=== PATIENT | male | born 1940 | race Caucasian/White ===

== ENCOUNTER 2016-09-15 17:52 | Inpatient (IN) | payer OTHER ==
[~2016-09-15] VITALS: Ht 172.7 cm; Wt 74.8 kg
[2016-09-15 18:04] VITALS: BP 164/79
[2016-09-15] MEDS ORDERED: OMEGA-31000 MG PO (18:09)
[2016-09-15] MEDS ORDERED: TAMSULOSIN HCL0.4 MG PO (18:09)
[2016-09-15] MEDS ORDERED: LOSARTAN POTASS25 MG PO (18:09)
[2016-09-15] MEDS ORDERED: CLOPIDOGREL75 MG PO (18:09)
[2016-09-15] MEDS ORDERED: ASPIRIN81 M1 PO (18:09)
[2016-09-15] MEDS ORDERED: CARVEDILOL3.125 MG PO (18:09)
[2016-09-15] MEDS ORDERED: LABETALOL 100 MG/20 ML VIAL IVP ONE (18:10)
[2016-09-15] MEDS ORDERED: ASPIRIN 81 MG TAB.CHEW PO ONE (18:10)
[2016-09-15] MEDS ORDERED: NITROGLYCERIN 0.4 MG TAB SL ONE (18:10)
--- NOTE | 2016-09-15 18:11 | NUR ---
Patient ambulated to bed 01
--- NOTE | 2016-09-15 18:14 | NUR ---
PATIENT PRESENTS TO ED WITH sob and chest pain with persistant coughing . PT STATES . DENIES N/V/D; SKIN IS PINK/WARM/DRY; AAOX4 WITH EVEN AND STEADY GAIT; LUNGS wheezing rales; HR tachy; TIME; PATIENT STATES PAIN OF 7/10 AT THIS TIME; VSS; PATIENT POSITIONED FOR COMFORT; HOB ELEVATED; BEDRAILS UP X2; BED DOWN. ER MD MADE AWARE OF PT STATUS. placed on 3L 02 NC-sat up [facility]--placed on monitor--x-ray/ RT called to bedside. lab with me collecting blood. pt reports having a stent in place and hypertension also pre diabetes
[2016-09-15] MEDS ORDERED: IPRATROPIUM 0.02% 0.5 MG/2.5 ML NEBU INH ONE (18:15)
[2016-09-15] MEDS ORDERED: ALBUTEROL 0.083% 2.5 MG/3 ML NEBU INH ONE (18:15)
--- NOTE | 2016-09-15 18:17 | NUR ---
called to bedside, pt's HR 223 currently on breathing treatment
[2016-09-15] MEDS ORDERED: NACL 0.9% 1,000 ML IV ONE (18:20)
--- NOTE | 2016-09-15 18:22 | NUR ---
RT at bedside to give patient a breathing treatment.
--- NOTE | 2016-09-15 18:23 | NUR ---
XRAY at bedside.
--- NOTE | 2016-09-15 18:45 | NUR ---
bp 99/71 labetalol held repeat 125/60 ---- notified
[2016-09-15] MEDS ORDERED: PIPERACILLIN/TAZOBACTAM 3.375 GM in DEXTROSE 5% 50 ML IV ONE (19:15)
--- NOTE | 2016-09-15 19:19 | NUR ---
report recieved from sivan joseph
[2016-09-15] MEDS ORDERED: PIPERACILLIN/TAZOBACTAM 3.375 GM VIAL IV ONE (19:28)
[2016-09-15] MEDS ORDERED: MORPHINE SULFATE 2 MG/ML SYR IVP PRN (20:00)
[2016-09-15] MEDS ORDERED: DOCUSATE SODIUM 100 MG GELCAP PO PRN (20:00)
[2016-09-15] MEDS ORDERED: ONDANSETRON 4 MG/2 ML VIAL IVP PRN (20:00)
[2016-09-15] MEDS ORDERED: NITROGLYCERIN 0.4 MG TAB SL PRN (20:15)
[2016-09-15] MEDS: LOSARTAN 25 MG TAB PO SCH ×2 (20:15→21:48)
[2016-09-15] MEDS: ASPIRIN 81 MG TAB.CHEW PO SCH (20:15)
[2016-09-15] MEDS: NACL 0.9% 500 ML IV SCH (20:20)
[2016-09-15] MEDS ORDERED: ZOLPIDEM 5 MG TAB PO PRN (20:25)
[2016-09-15 20:30] VITALS: BP 105/51
--- NOTE | 2016-09-15 20:30 | NUR ---
RECEIVED PT FROM ER VIA [facility] ON 08 15 LTS VIA BANDAR SIMS ON RT AC PATENT, ON TELEMETRY ST, BRUISES ON BILATERAL UPPER EXTREMITIES PT IS ORIENTED TO THE FLOOR CALL LIGHT WITHIN REACH FAMILY AT BED SIDE INITIAL ASSESSMENT DONE
--- NOTE | 2016-09-15 20:30 | NUR ---
Patient will be admitted to care of dr daniel. Admited to tele. Will go to [id number]. Belongings list completed. Report to opal carrillo .
--- NOTE | 2016-09-15 21:45 | NUR ---
SPUTUM, URINE SENT TO LAB , PT ON TELEMETRY ST NOT SOB NOTED
[2016-09-15] MEDS: CLOPIDOGREL 75 MG TAB PO SCH (21:49)
[2016-09-15] MEDS: TAMSULOSIN 0.4 MG CAP PO SCH (21:49)
[2016-09-15] MEDS: CARVEDILOL 3.125 MG TAB PO SCH (21:50)
[2016-09-15] MEDS: SACCHAROMYCES 250 MG CAP PO SCH (21:52)
[2016-09-16] MEDS ORDERED: PIPERACILLIN/TAZOBACTAM 3.375 GM VIAL IV ONE ×2 (00:28→05:05)
[2016-09-16] MEDS: PIPER/TAZO 3.375GM/D5W PREMIX 50 ML IV SCH ×5 (00:28→23:59)
[2016-09-16 00:40] VITALS: BP 90/50
--- NOTE | 2016-09-16 00:45 | NUR ---
PT HAS TEMP 101 TYLENOL GIVEN ORDER
[2016-09-16] MEDS: ACETAMINOPHEN 325 MG TAB PO PRN ×2 (00:53→17:28)
--- NOTE | 2016-09-16 01:30 | NUR ---
RESP KTHERAPY IS HERE AND ASSIST THE PT ON OXYMIZER 5 LTS TO GET 96% 02 SAT
[2016-09-16 04:00] VITALS: BP 94/52
--- NOTE | 2016-09-16 04:00 | NUR ---
SPONGE BATH GIVEN , LINEN CHANGED ON OXYMIZER 5 LTS , ON TELEMETRY SR, DENIES ANY PAIN OR DISCOMFORT
[2016-09-16] MEDS: NACL 0.9% 500 ML IV SCH ×2 (04:35→05:26)
--- NOTE | 2016-09-16 05:41 | NUR ---
PT SLEEPING WELL NOT DISTRESS NOTED ON TELE SR VOIDING WELL
--- NOTE | 2016-09-16 06:20 | NUR ---
PT RESTING ON BED VOIDING WELL, ON TELEMETRY SR IV ON RT AC INFUSING WELL STILL PRODUCTIVE COUGH CREAMY
--- NOTE | 2016-09-16 07:15 | NUR ---
RECEIVED REPORT FROM CARIDAD HENRIQUEZ. PT IS AAOX4, PT ON 3L OXIMIZER O2 SAT AT 94% WITH NO S/S OF DISTRESS NOTED. IV TO RIGHT AC #20, PATENT AND INTACT. NO N/V OR PAIN INDICATED. SKIN INTACT. ALL SAFETY PRECAUTIONS IN PLACE, SIDE RAILSX2, BED IN LOW POSITION, AND CALL LIGHT WITHIN REACH. WILL CONTINUE TO MONITOR.
[2016-09-16] MEDS: NACL 0.9% 1,000 ML IV SCH ×3 (07:21→20:36)
[2016-09-16 07:58] VITALS: BP 97/46
--- NOTE | 2016-09-16 08:22 | NUR ---
PATIENT HAS BEEN SCREENED AND CATEGORIZED MODERATE NUTRITION RISK. PATIENT WILL BE SEEN WITHIN 3-5 DAYS OF ADMISSION. 09/18/16-09/20/[address]
[2016-09-16] MEDS: ASPIRIN 81 MG TAB.CHEW PO SCH (08:54)
[2016-09-16] MEDS: LOSARTAN 25 MG TAB PO SCH (08:55)
[2016-09-16] MEDS: TAMSULOSIN 0.4 MG CAP PO SCH (08:55)
[2016-09-16] MEDS: CARVEDILOL 3.125 MG TAB PO SCH ×2 (08:55→20:36)
[2016-09-16] MEDS: CLOPIDOGREL 75 MG TAB PO SCH (08:57)
[2016-09-16] MEDS: SACCHAROMYCES 250 MG CAP PO SCH ×2 (08:57→20:36)
--- NOTE | 2016-09-16 08:58 | NUR ---
PT STATED HE ONLY TAKES ASPIRIN TUESDAYS AND FRIDAY. HELD ASPIRIN PER PT REFUSAL. HELD BP MEDICATIONS AND FLOMAX DUE TO PT'S LOW BLOOD PRESSURE. PT TOLERATED MEDS WELL. WILL CONTINUE TO MONITOR. FAMILY PRESENT AT BEDSIDE.
[2016-09-16] MEDS ORDERED: ATORVASTATIN 20 MG TAB PO SCH ×2 (09:00→11:10)
--- NOTE | 2016-09-16 09:30 | NUR ---
DR KRAMER TO SEE PT. WILL FOLLOW UP ON ORDERS.
--- NOTE | 2016-09-16 10:00 | NUR ---
FAMILY PRESENT AT BEDSIDE. WILL CONTINUE TO MONITOR.
[2016-09-16] MEDS ORDERED: ALBUTEROL SULFATE/IPRATROPIU 3 ML SOL IH PRN (11:10)
--- NOTE | 2016-09-16 11:30 | NUR ---
ECHOCARDIOGRAM BEING PERFORMED ON PT.
[2016-09-16] MEDS: CALCIUM CARBONATE 500 MG TAB PO SCH ×2 (11:36→17:10)
--- NOTE | 2016-09-16 11:41 | NUR ---
PT TOLERATED MEDS WELL. WILL CONTINUE TO MONITOR.
[2016-09-16 12:00] VITALS: BP 97/59
--- NOTE | 2016-09-16 12:47 | NUR ---
PT EATING DINNER WITH FAMILY PRESENT AT BEDSIDE.
--- NOTE | 2016-09-16 13:54 | NUR ---
CM NOTE PER SLASHER SAWYER GOYO EXT [phone], REVIEWS SHOULD GO TO [facility]. INITIAL REVIEW SENT TO [facility] FAX# [phone] PH# [phone] DONITA EXT [phone]
--- NOTE | 2016-09-16 14:07 | NUR ---
PT SLEEPING WITH NO DISTRESS NOTED.
--- NOTE | 2016-09-16 15:07 | NUR ---
DR TERAN IN TO SEE PT. WILL FOLLOW UP ON ORDERS.
[2016-09-16 16:00] VITALS: BP 104/55
--- NOTE | 2016-09-16 16:06 | NUR ---
PT C/O IV TO DOMINANT ARM. NEW IV STARTED TO LEFT WRIST #22, PATENT AND INTACT. WILL CONTINUE TO MONITOR.
--- NOTE | 2016-09-16 16:30 | NUR ---
DR BONILLA TO SEE PT. WILL FOLLOW UP ON ORDERS.
--- NOTE | 2016-09-16 17:14 | NUR ---
PT TOLERATED MEDS WELL. PT'S DAUGHTER AT BEDSIDE. WILL CONTINUE TO MONITOR.
--- NOTE | 2016-09-16 17:29 | NUR ---
PT HAVING LOW GRADE FEVER 99.9. ADMINISTERED TYLENOL, PER PT'S DAUGHTER'S REQUEST AMINA. WILL CONTINUE TO MONITOR.
--- NOTE | 2016-09-16 19:15 | NUR ---
ENDORSED CARE TO CARIDAD HERBERT. PT IN STABLE CONDITION.
--- NOTE | 2016-09-16 19:28 | NUR ---
RECEIVED REPORT FROM Dora MONZON RN AT BEDSIDE. INITIAL ASSESSMENT AND BODY CHECK DONE. PATIENT AAO X 4, ABLE TO FOLLOW COMMAND AND MAKE NEEDS KNOWN AND AMBULATORY. PATIENT CURRENTLY LYING DOWN ON THE BED AND WATCHING TV. NO S/S OF DISTRESS OR SOB NOTED. DENIED OF ANY PAIN/DISCOMFORT AT THIS TIME. SKIN WARM/ DRY TO TOUCH WITH NORMAL COLOR AND INTACT. NOTED SOME BRUISES TO BUE. DISCUSSED PLAN OF CARE, PAIN MANAGEMENT AND MEDICATION REGIMEN WITH PATIENT AND PATIENT VERBALIZED UNDERSTANDING. PLACED PATIENT ON SAFETY/FALL PRECAUTIONS AND WILL CONTINUE TO MONITOR. CALL LIGHT LEFT WITHIN REACH.
[2016-09-16 19:55] VITALS: BP 109/59
--- NOTE | 2016-09-16 20:34 | NUR ---
NO DISTRESS/SOB/WHEEZING NOTED AT THIS TIME. NO INDICATION FOR HHN PRN TX.
--- NOTE | 2016-09-16 21:39 | NUR ---
ADMINISTERED DUE MEDICATIONS MD'S ORDERED WITH EDUCATION GIVEN. PATIENT COMPLYING WITH MEDICATIONS AND TOLERATED WELL. ALL NEEDS ARE ATTENDED. KEPT PATIENT IN COMFORTABLE POSITION/WARM AND WILL CONTINUE TO MONITOR.
[2016-09-17] VITALS: BP 117/74
--- NOTE | 2016-09-17 01:16 | NUR ---
PATIENT RESTED WELL AND REMAINED IN STABLE CONDITION. NO APPARENT DISTRESS NOTED. WILL CONTINUE TO MONITOR.
[2016-09-17 04:00] VITALS: BP 121/71
--- NOTE | 2016-09-17 04:10 | NUR ---
PATIENT IS CLINICALLY STABLE WITH UNCHANGED V/S. AM CARE GIVEN AND WILL CONTINUE TO MONITOR.
[2016-09-17] MEDS: PIPER/TAZO 3.375GM/D5W PREMIX 50 ML IV SCH ×3 (05:42→17:19)
--- NOTE | 2016-09-17 07:25 | NUR ---
ENDORSED PLAN OF CARE TO Dora MONZON RN. PATIENT REMAINED IN STABLE CONDITION WITHOUT S/S OF DISTRESS NOTED.
--- NOTE | 2016-09-17 07:26 | NUR ---
RECEIVED REPORT FROM CARIDAD HERBERT. PT IS AAOX4, PT ON 3L OXIMIZER O2 SAT AT 92%. NO S/S OF DISTRESS NOTED. IV TO LEFT AC #20 AND RIGHT WRIST #22, PATENT AND INTACT. NO N/V OR PAIN INDICATED. SKIN INTACT. ALL SAFETY PRECAUTIONS IN PLACE, SIDE RAILSX2, BED IN LOW POSITION, AND CALL LIGHT WITHIN REACH. WILL CONTINUE TO MONITOR.
[2016-09-17 08:00] VITALS: BP 113/69
[2016-09-17] MEDS: CALCIUM CARBONATE 500 MG TAB PO SCH ×3 (08:29→17:18)
[2016-09-17] MEDS: CARVEDILOL 3.125 MG TAB PO SCH ×2 (08:30→20:00)
[2016-09-17] MEDS: ASPIRIN 81 MG TAB.CHEW PO SCH (08:30)
[2016-09-17] MEDS: LOSARTAN 25 MG TAB PO SCH (08:30)
[2016-09-17] MEDS: SACCHAROMYCES 250 MG CAP PO SCH ×2 (08:31→20:01)
[2016-09-17] MEDS: ATORVASTATIN 20 MG TAB PO SCH (08:31)
[2016-09-17] MEDS: TAMSULOSIN 0.4 MG CAP PO SCH (08:31)
[2016-09-17] MEDS: CLOPIDOGREL 75 MG TAB PO SCH (08:32)
--- NOTE | 2016-09-17 08:35 | NUR ---
DR MARTINI IN TO SEE PT. WILL FOLLOW UP ON ORDERS
[2016-09-17] MEDS: NACL 0.9% 1,000 ML IV SCH ×2 (08:39→20:07)
--- NOTE | 2016-09-17 08:40 | NUR ---
BP 125/71, HR 89. ONLY ADMINISTERED COREG, PT'S BP LOW YESTERDAY. PT AFRAID BP MAY DROP. HELD FLOMAX, PT STATED HE ONLY TAKES THAT MEDICATION AT NIGHT. PT TOLERATED MEDS WELL. WILL CONTINUE TO MONITOR.
--- NOTE | 2016-09-17 09:43 | NUR ---
CHANGE TO 3L N/C SPO2 92
--- NOTE | 2016-09-17 10:33 | NUR ---
PATIENT AMBULATING THROUGH HALLWAY, PT TOLERATING WELL.
--- NOTE | 2016-09-17 10:59 | NUR ---
CM NOTE CONCURRENT REVIEW SENT TO [facility] FAX# [phone] PH# [phone] DONITA EXT [phone]
--- NOTE | 2016-09-17 11:10 | NUR ---
PT O2 SAT AT REST IS 88% ON ROOM AIR. PT O2 SAT DURING AMBULATION IS 89% ON ROOM AIR. PT STATED FEELING SOB WITH WHEN DONE AMBULATING. MADE AWARE. WILL CONTINUE TO MONITOR.
--- NOTE | 2016-09-17 11:29 | NUR ---
PT TOLERATED MEDS WELL. FAMILY PRESENT AT BEDSIDE. WILL CONTINUE TO MONITOR.
[2016-09-17] MEDS: ALBUTEROL SULFATE/IPRATROPIU 3 ML SOL IH SCH ×3 (11:33→19:51)
[2016-09-17 12:00] VITALS: BP 138/85
[2016-09-17] MEDS ORDERED: INSULIN LISPRO SLIDING SCALE 100 UNITS/ML VIAL SUBQ PRN (12:20)
[2016-09-17] MEDS ORDERED: DEXTROSE 50% 50 ML SYR IVP PRN (12:20)
--- NOTE | 2016-09-17 12:31 | NUR ---
CC NOTE: PER PAULINA FROM [facility], THEIR DON NEEDS TO SEE H&P AFTER THE SWALLOW EVAL. PER DESTINI FROM [facility], NO BEDS AVAILABLE. PER LUCIA MIN FROM [facility], NO BEDS AVAILABLE FOR RESIDENTIAL. PER LUIS ALFREDO FROM [facility], SHE WILL VERIFY WITH THE DIRECTOR OF ADMISSION FOR THE AVAILABILITY OF BEDS. SHE WILL CALL BACK. PER YEYO FROM [facility] ([phone]), 5 FEMALE BEDS AVAILABLE. SENT PATIENTS PACKET TO FAX # [phone] FOR DON'S REVIEW. PER ANA FROM [facility] [place] [facility], NO BEDS AVAILABLE. PER XIAO FROM [facility], NO BEDS AVAILABLE. PER DANNY FROM [facility], NO BEDS AVAILABLE. PER DONITA FROM [facility], NO BEDS AVAILABLE. PER STEPHANIE FROM [facility], NO BEDS AVAILABLE. PER GAIL FROM [facility], NO BEDS AVAILABLE [facility] [place] [facility], NO ANSWER. PER LIZBETH FROM [facility] [place], NO BEDS AVAILABLE. PER DENISA FROM [facility] Addendum: 09/17/16 at 1256 by Amanda Nair RN WRONG PATIENT
--- NOTE | 2016-09-17 14:00 | NUR ---
PT RESTING WITH FAMILY PRESENT AT BEDSIDE.
[2016-09-17 16:00] VITALS: BP 109/66
--- NOTE | 2016-09-17 16:00 | NUR ---
BLOOD GLUCOSE 127, NO COVERAGE INDICATED.
[2016-09-17] MEDS: BLOOD GLUCOSE MONITORING 1 DEV DEV FS SCH ×2 (16:08→20:05)
--- NOTE | 2016-09-17 16:24 | NUR ---
VSS. WILL CONTINUE TO MONITOR.
[2016-09-17] MEDS ORDERED: ASPIRIN 81 MG TAB.CHEW PO SCH (16:25)
--- NOTE | 2016-09-17 17:21 | NUR ---
PT TOLERATED MEDS WELL. FAMILY PRESENT AT BEDSIDE. WILL CONTINUE TO MONITOR.
--- NOTE | 2016-09-17 18:00 | NUR ---
PT AMBULATED WITH DAUGHTER AT SIDE WITH NO DISTRESS.
--- NOTE | 2016-09-17 18:52 | NUR ---
PT RESTING, NO DISTRESS NOTED AT THIS TIME.
--- NOTE | 2016-09-17 19:09 | NUR ---
ENDORSED CARE TO CARIDAD HERBERT. PT IN STABLE CONDITION.
--- NOTE | 2016-09-17 19:28 | NUR ---
RECEIVED REPORT FROM Dora MONZON RN AT BEDSIDE. INITIAL ASSESSMENT AND BODY CHECK DONE. PATIENT AAO X 4, ABLE TO FOLLOW COMMAND AND MAKE NEEDS KNOWN AND AMBULATORY BY SELF. PATIENT CURRENTLY LYING DOWN ON THE BED AND RESTING. NO S/S OF DISTRESS OR SOB NOTED. DENIED OF ANY PAIN/DISCOMFORT AT THIS TIME. SKIN WARM/ DRY TO TOUCH WITH NORMAL COLOR AND INTACT. STILL NOTED SOME BRUISES TO BUE. DISCUSSED PLAN OF CARE, PAIN MANAGEMENT AND MEDICATION REGIMEN WITH PATIENT AND PATIENT VERBALIZED UNDERSTANDING. PLACED PATIENT ON SAFETY/FALL PRECAUTIONS AND WILL CONTINUE TO MONITOR. CALL LIGHT LEFT WITHIN REACH.
[2016-09-17] MEDS: BUDESONIDE 0.5 MG/2 ML NEBU INH SCH (19:51)
[2016-09-17 20:00] VITALS: BP 109/68
[2016-09-17] MEDS: ACETAMINOPHEN 325 MG TAB PO PRN (20:00)
--- NOTE | 2016-09-17 21:30 | NUR ---
ADMINISTERED DUE MEDICATIONS MD'S ORDERED WITH EDUCATION GIVEN. PATIENT COMPLYING WITH MEDICATIONS AND TOLERATED WELL. WILL CONTINUE TO MONITOR.
--- NOTE | 2016-09-17 22:48 | NUR ---
ROUNDS MADE, SEEN PATIENT ASLEEP QUIETLY IN BED. NO CHANGE IN CONDITION NOTED. KEPT PATIENT IN COMFORTABLE POSITION/WARM AND WILL CONTINUE TO MONITOR.
[2016-09-18] VITALS (7 sets, daily range): BP systolic 100–132; BP diastolic 58–77
[2016-09-18] MEDS: PIPER/TAZO 3.375GM/D5W PREMIX 50 ML IV SCH ×5 (00:02→23:35)
--- NOTE | 2016-09-18 01:37 | NUR ---
PATIENT RESTED WELL ON THE BED AND REMAINED IN STABLE CONDITION. WILL CONTINUE TO MONITOR.
--- NOTE | 2016-09-18 04:30 | NUR ---
PATIENT IS CLINICALLY STABLE WITH UNCHANGED V/S. PATIENT PERFORMED AM CARE BY SELF. WILL CONTINUE TO MONITOR.
[2016-09-18] MEDS: BLOOD GLUCOSE MONITORING 1 DEV DEV FS SCH ×4 (05:36→21:18)
--- NOTE | 2016-09-18 07:11 | NUR ---
ENDORSED PLAN OF CARE TO CARIDAD ARZATE, AT BEDSIDE. PATIENT REMAINED IN STABLE CONDITION AND NO APPARENT DISTRESS NOTED.
--- NOTE | 2016-09-18 07:12 | NUR ---
RECEIVED PT REPORT FROM THE FINANCIAL OFFICER NURSE AT BEDSIDE. PT IS ALERT AND ORIENTED. I INTRODUCED MYSELF. NOTE THE NC OZ AT 3L. NOTED THE IV SITES. R AC 20 SL. L WRIST 22G NS AT 80ML. NOTED THE BRUISES ON ARMS. SCD'S IN PLACE. PT HAS NO COMPLAINTS AT THIS TIME. WILL COME BACK TO FURTHER ASSESS PT.
[2016-09-18] MEDS: ALBUTEROL SULFATE/IPRATROPIU 3 ML SOL IH SCH ×5 (07:43→22:56)
[2016-09-18] MEDS: BUDESONIDE 0.5 MG/2 ML NEBU INH SCH ×2 (07:43→19:00)
--- NOTE | 2016-09-18 07:45 | NUR ---
V/S WITHIN NORMAL LIMITS. NO COMPLAINTS. NO SIGNS OF DISTRESS. ALL SAFETY MEASURES IN PLACE. WILL CONTINUE TO MONITOR PT.
[2016-09-18] MEDS: ATORVASTATIN 20 MG TAB PO SCH (09:04)
[2016-09-18] MEDS: LOSARTAN 25 MG TAB PO SCH (09:04)
[2016-09-18] MEDS: SACCHAROMYCES 250 MG CAP PO SCH ×2 (09:04→21:19)
[2016-09-18] MEDS: CLOPIDOGREL 75 MG TAB PO SCH (09:05)
[2016-09-18] MEDS: TAMSULOSIN 0.4 MG CAP PO SCH (09:05)
[2016-09-18] MEDS: CALCIUM CARBONATE 500 MG TAB PO SCH ×3 (09:05→17:33)
[2016-09-18] MEDS: ASPIRIN 81 MG TAB.CHEW PO SCH (09:05)
[2016-09-18] MEDS: CARVEDILOL 3.125 MG TAB PO SCH ×2 (09:05→21:00)
--- NOTE | 2016-09-18 09:10 | NUR ---
ADMINISTERED MORNING MEDS. PT TOLERATED WELL. WILL CONTINUE TO MONITOR PT.
--- NOTE | 2016-09-18 09:51 | NUR ---
REMOVED THE NC TO SEE HIS O2 SATURATION. PER MD, IF HE IS OK WITH O2 OFF, HE CAN GO HOME TODAY.
--- NOTE | 2016-09-18 10:32 | NUR ---
PT WAS JUST HERE. PT WENT FOR A WALK, NOW IN BED. CHECKED HIS O2. IT IS AT 90%. HE IS BREATHING RAPID AND DEEP. WILL CONTINUE CHECKING HIS O2.
--- NOTE | 2016-09-18 11:31 | NUR ---
PER HUEY/RN RESIDENT MD REQUESTING OXYGEN SATURATION MONITORING ON ROOM AIR
--- NOTE | 2016-09-18 12:00 | NUR ---
MADDY RT STATED THAT HE WAS 89% ON ROOM AIR. STILL CHECKING ON O2 SAT.
[2016-09-18] MEDS: NACL 0.9% 1,000 ML IV SCH (12:03)
--- NOTE | 2016-09-18 14:00 | NUR ---
PT VISITING WITH FAMILY. NO COMPLAINTS. NO SIGNS OF DISTRESS. WILL CONTINUE TO MONITOR PT.
--- NOTE | 2016-09-18 14:19 | NUR ---
CM NOTE CONCURRENT REVIEW SENT TO [facility] FAX# [phone] PH# [phone] DONITA EXT [phone]
--- NOTE | 2016-09-18 15:00 | NUR ---
DR. LUEVANO WANTED PT TO SIT IN A CHAIR AND AMBULATE TOLERATED. FAMILY AT BEDSIDE. ASSISTED PT TO A CHAIR NEXT TO THE BED. WILL CONTINUE TO MONITOR PT. ENCOURAGE PT TO PRACTICE INCENTIVE SPIROMETER OFTEN.
--- NOTE | 2016-09-18 15:58 | NUR ---
AWAKE AND ALERT ENCOURAGED PATIENT WITH ACKNOWLEDGEMENT TO USE INCENTIVE SPIROMETRY EVERY HOUR WHILE AWAKE
--- NOTE | 2016-09-18 16:30 | NUR ---
RADIOLOGY TOOK PT FOR CXRY 2 VIEWS. TICKET TO RIDE READY. MAHSA IV.
--- NOTE | 2016-09-18 17:42 | NUR ---
STARTED A NEW IV ON HIS L HAND 22G. R AC IS INFILTRATED. DC'D. ADMINISTERED HIS CALCIUM AND HIS ZOSYN. PT TOLERATED WELL. PT'S BREATHING IS BETTER, NOT LABORED. INTERMITTENT COUGH, PRODUCTIVE. WILL CONTINUE TO MONITOR PT.
--- NOTE | 2016-09-18 19:05 | NUR ---
RT STATED THAT PT'S ROOM AIR SAT WAS DOWN TO 85%. SHE WILL PUT ON AN OXIMIZER 6L OF O2.
--- NOTE | 2016-09-18 19:20 | NUR ---
ENDORSED PT TO THE SUPERVISOR WARPING DEPARTMENT AT BEDSIDE FOR CONTINUITY OF CARE. PT IS IN STABLE CONDITION.
--- NOTE | 2016-09-18 19:45 | NUR ---
RECEIVED PT IN STABLE CONDITION FROM AM NURSE. AWAKE,ALERT AND ORIENTED X4, DANISH SPEAKING. ON O2 6L BY OXYMIZER. O2 SAT 95%. NO ACUTE DISTRESS NOTED. JUST HAD A BREATHING TREATMENT. NO C/O ANY PAIN NOR DISCOMFORT NOTED. ON TELE -ST. WITH IVF INFUSING WELL ON THE LEFT HAND #22. CLEAR AND PATENT. WITH BLE SCD MACHINE ON. PLAN OF CARE DISCUSSED AND VERBALIZED UNDERSTANDING. CALL LIGHT AND URINAL WITHIN EASY REACH. WILL CONTINUE TO MONITOR.
--- NOTE | 2016-09-18 21:18 | NUR ---
BLOOD SUGAR WAS CHECKED RESULT 154. PT REFUSED ANY INSULIN. HE SAID HE IS NOT DIABETIC.
[2016-09-18] MEDS: DOCUSATE SODIUM 100 MG GELCAP PO SCH (21:19)
--- NOTE | 2016-09-18 23:05 | NUR ---
FOUND PT ON ROOM AIR.. SATS 89%. GAVE HHNTX AND PLACED PT BACK ON OXYMIZER AT 4L
--- NOTE | 2016-09-19 02:00 | NUR ---
SLEEPING AT THIS TIME. NO S/S OF ANY DISCOMFORT NOR PAIN NOTED. WILL CONTINUE TO MONITOR.
[2016-09-19 03:40] VITALS: BP 110/68
[2016-09-19] MEDS: PIPER/TAZO 3.375GM/D5W PREMIX 50 ML IV SCH ×2 (05:25→13:09)
[2016-09-19] MEDS: BLOOD GLUCOSE MONITORING 1 DEV DEV FS SCH ×2 (06:18→11:30)
--- NOTE | 2016-09-19 06:18 | NUR ---
BLOOD SUGAR CHECKED THIS AM RESULT 96. NO INSULIN NEEDED.
[2016-09-19] MEDS: BUDESONIDE 0.5 MG/2 ML NEBU INH SCH (07:11)
[2016-09-19] MEDS: ALBUTEROL SULFATE/IPRATROPIU 3 ML SOL IH SCH ×3 (07:15→15:54)
--- NOTE | 2016-09-19 07:20 | NUR ---
RECEIVED PATIENT REPORT FROM NIGHT NURSE. PATIENT CURRENTLY RECEIVING BREATHING TX. NO S/S OF DISTRESS NOTED. PATIENT ALERT, AWAKE, ORIENTED AND AMBULATORY. NO C/O OF PAIN. IV TO THE LEFT HAND INTACT WITH IVF INFUSING WELL. PATIENT ON TELE MONITORING. BED LOWERED WITH CALL LIGHT WITHIN REACH. WILL CONTINUE TO MONITOR
--- NOTE | 2016-09-19 07:20 | NUR ---
ENDORSED PT IN STABLE CONDITION TO AM NURSE.
[2016-09-19 08:00] VITALS: BP 117/65
[2016-09-19] MEDS ORDERED: metFORMIN 500 MG TAB PO SCH (08:00)
[2016-09-19] MEDS: SACCHAROMYCES 250 MG CAP PO SCH (08:56)
[2016-09-19] MEDS: ATORVASTATIN 20 MG TAB PO SCH (08:56)
[2016-09-19] MEDS: LOSARTAN 25 MG TAB PO SCH (08:56)
[2016-09-19] MEDS: CLOPIDOGREL 75 MG TAB PO SCH (08:57)
[2016-09-19] MEDS: CALCIUM CARBONATE 500 MG TAB PO SCH ×2 (08:57→13:10)
[2016-09-19] MEDS: CARVEDILOL 3.125 MG TAB PO SCH (08:57)
[2016-09-19] MEDS: TAMSULOSIN 0.4 MG CAP PO SCH (08:57)
[2016-09-19] MEDS: ASPIRIN 81 MG TAB.CHEW PO SCH (09:00)
[2016-09-19] MEDS: DOCUSATE SODIUM 100 MG GELCAP PO SCH (09:00)
[2016-09-19] MEDS: NACL 0.9% 1,000 ML IV SCH (09:45)
--- NOTE | 2016-09-19 10:26 | NUR ---
PATIENT AMBULATED AROUND THE UNIT. NO S/S OF DISTRESS NOTED. PATIENT DENIES PAIN OR SOB. O2 SAT 89% ON ROOM AIR. WILL CONTINUE TO MONITOR
--- NOTE | 2016-09-19 10:37 | NUR ---
CM NOTE CONCURRENT REVIEW SENT TO [facility] FAX# [phone] PH# [phone] DONITA EXT [phone]
--- NOTE | 2016-09-19 11:52 | NUR ---
PT ON ROOM AIR X 20 MINUTES SPO2 .84 TO .86 PT PT ON 2LPM NC SPO2 INCREASED TO .90 TO .92
[2016-09-19 12:00] VITALS: BP 113/81
--- NOTE | 2016-09-19 12:06 | NUR ---
SS NOTE: PHYSICIAN'S ORDER FOR HOME OXYGEN AND PT INFORMATION SENT TO [facility], RECEIVED FAX CONFIRMATION
--- NOTE | 2016-09-19 13:34 | NUR ---
SS NOTE: PER TRACEY FROM [facility] ([phone]), HE WILL DELIVER PT'S PORTABLE OXYGEN BEDSIDE LATE AFTERNOON OR EARLY EVENING TODAY.
--- NOTE | 2016-09-19 13:55 | NUR ---
SS NOTE: I SPOKE WITH PT'S GRANDDTR, NAZIA AND INFORMED HER OF PT'S OXYGEN DELIVERY. I ALSO INFORMED HER THAT [facility] WILL CONTACT HER REGARDING A DELIVERY TIME FOR PT'S CONCENTRATOR AND TO WAIT UNTIL THE CONCENTRATOR ARRIVES TO PT'S HOME PRIOR TO PICKING PT UP AND TAKING HIM HOME, SHE VERBALIZED UNDERSTANDING.
[2016-09-19] MEDS ORDERED: ATORVASTATIN CA20 MG PO (15:23)
[2016-09-19] MEDS ORDERED: AUGMENTIN 875-1 EACH PO (15:29)
[2016-09-19] MEDS ORDERED: BD LACTINEX1.4 MG PO (15:29)
[2016-09-19 16:00] VITALS: BP 103/71
--- NOTE | 2016-09-19 16:30 | NUR ---
PORTABLE O2 DELIVERED TO THE PATIENT AT BEDSIDE
--- NOTE | 2016-09-19 16:50 | NUR ---
PATIENT DISCHARGED TO HOME. DISCHARGE INSTRUCTIONS AND DISCHARGE PRESCRIPTIONS GIVEN. PATIENT VERBALIZED UNDERSTANDING. IV LINE DISCONTINUED. TELE LEADS TAKEN OFF. PATIENT SIGNED ALL OF HIS DISCHARGE PAPERS. PATIENT LEFT WITH ALL HIS BELONGINGS AND DISCHARGE PAPERS. PATIENT LEFT IN STABLE CONDITION
--- NOTE | 2016-09-19 16:50 | NUR ---
PATIENT LEFT WITH PORTABLE O2. PER DR LUEVANO, PATIENT DOES NOT HAVE TO WAIT FOR THE CONCENTRATOR TO BE DISCHARGED HOME
== END 2016-09-19 16:50 | disposition home or self-care (01) | DRG 177 ==
LOC: MED 17:52 → MTU 19:59
PROVIDERS: ADMIT Student in an Organized Health Care Education/Training Program; ATTEND Student in an Organized Health Care Education/Training Program
DX: J69.0 Pneumonitis due to inhalation of food and vomit (principal); N17.0 Acute kidney failure with tubular necrosis; J96.21 Acute and chronic respiratory failure with hypoxia; I47.1 Supraventricular tachycardia; I42.9 Cardiomyopathy, unspecified; J44.0 Chronic obstructive pulmonary disease with (acute) lower respiratory infection; I16.0 Hypertensive urgency; E78.5 Hyperlipidemia, unspecified; E83.51 Hypocalcemia; K21.9 Gastro-esophageal reflux disease without esophagitis; E11.65 Type 2 diabetes mellitus with hyperglycemia; R31.9 Hematuria, unspecified; J44.9 Chronic obstructive pulmonary disease, unspecified; E66.01 Morbid (severe) obesity due to excess calories; E78.00 Pure hypercholesterolemia, unspecified; E11.51 Type 2 diabetes mellitus with diabetic peripheral angiopathy without gangrene; I11.9 Hypertensive heart disease without heart failure; I25.10 Atherosclerotic heart disease of native coronary artery without angina pectoris; I25.2 Old myocardial infarction; Z87.891 Personal history of nicotine dependence; Z98.61 Coronary angioplasty status; Z79.82 Long term (current) use of aspirin; Z79.899 Other long term (current) drug therapy; Z68.25 Body mass index [BMI] 25.0-25.9, adult

== ENCOUNTER 2018-11-14 12:13 | Inpatient (IN) | payer OTHER ==
[~2018-11-14] VITALS: Ht 167.6 cm; Wt 75.7 kg
[~2018-11-14 12:13] MED LIST: AMOX-1000 PO; ASPI-1718 PO; CARV3.122 PO; CLOP75TA55 PO; FISH100053 PO; LACT1.4C PO; LOSA25TA43 PO; TAMS0.4C97 PO
--- NOTE | 2018-11-14 12:19 | NUR ---
PT AMBULATED TO BED 3
--- NOTE | 2018-11-14 12:19 | NUR ---
DR. LUX AT BEDSIDE EVALUATING PATIENT.
[2018-11-14 12:20] VITALS: BP 156/85
[2018-11-14] MEDS ORDERED: NACL 0.9% 1,000 ML IV ONE ×2 (12:22→13:45)
[2018-11-14] MEDS ORDERED: methylPREDNISolone SS 125 MG in WATER STERILE 2 ML IV ONE (12:25)
[2018-11-14] MEDS ORDERED: ALBUTEROL SULFATE/IPRATROPIU 3 ML SOL IH ONE ×2 (12:25→12:45)
--- NOTE | 2018-11-14 12:25 | NUR ---
78/M BIB DAUGHTER WITH C/O SOB X LAST NIGHT, WHEEZING LUNG SOUNDS ERNIE. HX OF COPD, A-FIB, HTN, GLAUCOMA. DENIES N/V/D; SKIN IS PINK/WARM/DRY; AAOX4 WITH EVEN AND STEADY GAIT; LUNGS WHEEZING BL; PT DENIES ANY FEVER,OR COUGH AT THIS TIME; PATIENT STATES LOWER BACK PAIN OF 5/10 AT THIS TIME; VSS; PATIENT POSITIONED FOR COMFORT; HOB ELEVATED; BEDRAILS UP X1; BED DOWN. ER MD MADE AWARE OF PT STATUS.
--- NOTE | 2018-11-14 12:28 | NUR ---
ADMTTING DX: SEEKING MEDICAL ATTENTION HX: COPD/PNA C/O SOB AWAKE AND ALERT RESPONSIVE EDCUATION PROVIDED TO PATIENT ON HHN THERAPY AND RESPIRATORY DRUG FOREMENTIONED GIVEN ORDERED ENCOURAGED PATIENT FOR INTERMITTENT DEEP BREATHING DURING THERAY TOLERATED WELL WITHOUT INCIDENT
[2018-11-14 12:45] LABS: BASOPHILS # (AUTO) 0.1 K/uL (0.00-0.22); BASOPHILS % (AUTO) 0.8 % (0.0-2.0); EOSINOPHILS # (AUTO) 0.3 K/uL (0-0.4); EOSINOPHILS % (AUTO) 3.3 % (0.0-4.0); HEMATOCRIT 45.9 % (36-52); HEMOGLOBIN 15.6 g/dL (12.0-18.0); LYMPHOCYTES % (AUTO) 12.2 % (20.5-51.1); MEAN CORPUSCULAR HEMOGLOBIN 32 pg (27-31); MEAN CORPUSCULAR HGB CONC 34 g/dL (33-37); MEAN CORPUSCULAR VOLUME 92.5 fL (80-94); MONOCYTES # (AUTO) 0.9 K/uL (0.8-1.0); MONOCYTES % (AUTO) 10.7 % (1.7-9.3); NEUTROPHILS # (AUTO) 6.2 K/uL (1.8-7.7); PLATELET COUNT (AUTO) 216 K/uL (140-450); RED BLOOD CELL COUNT(AUTO) 4.96 MIL/uL (4.20-6.10); RED CELL DISTRIBUTION WIDTH 13.5 % (11.6-13.7); WHITE BLOOD COUNT (AUTO) 8.5 K/uL (4.8-10.8)
[2018-11-14 12:52] LABS: ANION GAP 13.4 (8-16); CARBON DIOXIDE 27.8 mmol/L (21-32); CHLORIDE 101 mmol/L (98-107); CREATININE 1.1 mg/dL (0.7-1.3); GLUCOSE 110 mg/dL (74-106); POTASSIUM 4.2 mmol/L (3.5-5.1); SODIUM SERUM 138 mmol/L (136-145); UREA NITROGEN, BLOOD 13 mg/dL (7-18)
[2018-11-14 12:58] LABS: ALBUMIN 4.2 g/dL (3.4-5.0); ASPARTATE AMINOTRANSFERASE 20 U/L (15-37); LIPASE 132 U/L (73-393); TOTAL BILIRUBIN 0.7 mg/dL (0.0-1.0)
[2018-11-14 12:59] LABS: PROTHROMBIN TIME 9.9 secs (10.8-13.4)
--- NOTE | 2018-11-14 13:06 | NUR ---
RT AT BEDSIDE
--- NOTE | 2018-11-14 13:06 | NUR ---
URINE TAKEN TO LAB
--- NOTE | 2018-11-14 13:07 | NUR ---
FOLLOW UP HHN THERAPY AND RESPIRATORY DRUG GIVEN ORDERED ENCOURAGED INTERMITTENT DEEP BREATHING DURING THERAPY TOLERATED WELL WITHOUT INCIDENT
[2018-11-14 13:12] LABS: APPEARANCE,URINE CLEAR (CLEAR); BILIRUBIN,URINE NEGATIVE (NEGATIVE); BLOOD, URINE 2+ (NEGATIVE); COLOR,URINE YELLOW (YELLOW); LEUKOCYTE ESTERASE ,URINE NEGATIVE (NEGATIVE); NITRITE, URINE NEGATIVE (NEGATIVE); UGLUCOSE NEGATIVE (NEGATIVE)
[2018-11-14 13:17] LABS: RBC,URINE 11-20 (MOD) /HPF (0-5); WBC,URINE 0-5 /HPF (0-5)
--- NOTE | 2018-11-14 13:53 | NUR ---
PER ADMITTING, VERBAL AUTHORIZATION RECIEVED BY LEONOR FROM INSURANCE TO ADMIT TO DR SUTTON.
[2018-11-14] MEDS ORDERED: HYDROcodone/APAP 5/325 MG 1 TAB TAB PO PRN (14:05)
[2018-11-14] MEDS ORDERED: MEDICATION REC. PHARMACY CONS. 1 EA MISC MC PRN (14:05)
[2018-11-14] MEDS ORDERED: ONDANSETRON 4 MG/2 ML VIAL IM/IVP PRN (14:05)
[2018-11-14] MEDS ORDERED: ACETAMINOPHEN 325 MG TAB PO PRN (14:05)
[2018-11-14] MEDS ORDERED: DOCUSATE SODIUM 100 MG GELCAP PO PRN (14:05)
[2018-11-14] MEDS ORDERED: MORPHINE SULFATE 2 MG/ML SYR IVP PRN (14:05)
[2018-11-14] MEDS ORDERED: MELATONIN 3 MG TAB PO PRN (14:05)
[2018-11-14] MEDS ORDERED: PITA4TAB PO (14:08)
[2018-11-14] MEDS ORDERED: DUTA0.5S2 PO (14:08)
--- NOTE | 2018-11-14 14:35 | NUR ---
Pt admitted at this time in room 127B via [facility] from ER. Received report from ER nurse Chanell. Pt able to transfer from [facility] to bed independently. Medical hx provided by pt & daughter Alexandra at bedside. Left AC IV intact with ongoing NS bolus 1L with approximately 100ml left. Pt aaox4, oriented to room & unit. Pt verbalized understanding. Pt asked to use toilet. Able to amb with steady gait. Voided x1, then returned to bed. New bag of IVF NS initiated at 40ml/hr. Call light within reach.
--- NOTE | 2018-11-14 14:37 | NUR ---
Pt admitted to telemetry floor Rm 127B. Transfer of care at this time.
[2018-11-14 14:40] VITALS: BP 142/74
[2018-11-14] MEDS: NACL 0.9% 1,000 ML IV SCH (15:00)
[2018-11-14] MEDS ORDERED: ALBUTEROL SULFATE/IPRATROPIU 3 ML SOL IH PRN (15:00)
--- NOTE | 2018-11-14 15:15 | NUR ---
REVIEWED ABG SAMPLE REPORT WITH DR. KAREN GROVER PATIENT PLACED BACK ON SUUPLEMENTAL OXYGEN AT 2 LPM VIA NC NO NEW ORDERS
[2018-11-14 15:16] LABS: MAGNESIUM 2.2 mg/dL (1.8-2.4); THYROID STIMULATING HORMONE 1.56 uIU/mL (0.34-3.74)
--- NOTE | 2018-11-14 15:28 | NUR ---
Pt amb in hallway without O2. No signs of distress, pt denies any discomfort or SOB. Daughter Alexandra amb with pt.
[2018-11-14 15:37] LABS: PHOSPHORUS 3.3 mg/dL (2.5-4.9)
[2018-11-14 16:00] VITALS: BP 117/61
--- NOTE | 2018-11-14 17:30 | NUR ---
Dr. Mo at bedside to assess pt.
[2018-11-14] MEDS ORDERED: CYCL0.052 OP (18:57)
--- NOTE | 2018-11-14 19:01 | NUR ---
Restasis eyedrops (2doses) brought in by daughter Alexandra. Med recon updated. Med given to charge nurse.
--- NOTE | 2018-11-14 19:10 | NUR ---
REPORT GIVEN TO PM NURSE SUMMER. PT IN BED, FAMILY AT BEDSIDE.
--- NOTE | 2018-11-14 19:30 | NUR ---
RECEIVED BEDSIDE REPORT FROM DAY SHIFT RN, PATIENT IN BED IN 2 L NC, NO SIGNS OF ACUTE DISTRESS, BP 108/64, ST/SR ON TELE, HR IN 90'S TO 105. LEFT AC 20 G INFUSING NS AT 40 ML/HR. FAMILY AT BEDSIDE, QUESTIONS ANSWERED, EXPLAINED PLAN OF CARE.
[2018-11-14] MEDS ORDERED: DEXTROSE 50% 50 ML SYR IVP PRN (19:40)
[2018-11-14 20:00] VITALS: BP 108/64
[2018-11-14] MEDS: ALBUTEROL SULFATE/IPRATROPIU 3 ML SOL IH SCH (20:40)
--- NOTE | 2018-11-14 20:48 | NUR ---
PT ON RA WALKING IN ROOM, SPO2 88-91%, PLACED PT ON TX, PT BALDO WELL.
[2018-11-14] MEDS: (Cyclosporine (Restasis) 1 DROP) OP SCH (21:00)
--- NOTE | 2018-11-14 21:30 | NUR ---
DUE MEDICATIONS GIVEN, PATIENT TOLERATED WELL
[2018-11-14] MEDS: CARVEDILOL 3.125 MG TAB PO SCH (21:38)
[2018-11-14] MEDS: INSULIN LISPRO SLIDING SCALE 100 UNITS/ML VIAL SUBQ PRN (21:41)
[2018-11-14] MEDS: BLOOD GLUCOSE MONITORING 1 DEV DEV FS SCH (21:41)
[2018-11-14] MEDS: APIXABAN 2.5 MG TAB PO SCH (21:44)
--- NOTE | 2018-11-14 21:55 | NUR ---
INFLUENZA A AND B SWAB COLLECTED AND SENT TO LAB
[2018-11-15] VITALS: BP 97/60
--- NOTE | 2018-11-15 | NUR ---
V/S TAKEN BP 97/60 HR 69
--- NOTE | 2018-11-15 02:45 | NUR ---
PATIENT AMBULATED AROUND ROOM, STEADY GAIT, WENT BACK TO BED.
[2018-11-15 04:00] VITALS: BP 99/59
--- NOTE | 2018-11-15 04:00 | NUR ---
V/S TAKEN BP 9/59 HR 66.
[2018-11-15] MEDS: methylPREDNISolone SS 125 MG/2 ML VIAL IVP SCH ×3 (05:52→20:24)
[2018-11-15] MEDS: BLOOD GLUCOSE MONITORING 1 DEV DEV FS SCH ×4 (05:52→20:25)
[2018-11-15] MEDS: INSULIN LISPRO SLIDING SCALE 100 UNITS/ML VIAL SUBQ PRN ×3 (05:53→22:24)
--- NOTE | 2018-11-15 06:36 | NUR ---
BG 155 GAVE 2 UNITS. EDUCATION PROVIDED REGARDING SOLU-MEDROL ADMINISTRATION.
--- NOTE | 2018-11-15 07:18 | NUR ---
ENDORSED PATIENT TO DAY SHIFT NURSE, PATIENT STABLE.
--- NOTE | 2018-11-15 07:19 | NUR ---
RECEIVED BEDSIDE REPORT FROM CARIDAD FERNANDEZ. PATIENT ON TELE MONITOR AND STANDARD PRECAUTIONS IN PLACE. PATIENT AAOX4 AND ON ROOM AIR, NO DISTRESS NOTED. SKIN INTACT. PATIENT AMBULATORY AND CONTINENT. L AC 20 G INFUSING NS AT 40, IV ASYMPTOMATIC PATENT AND INTACT. BED IN LOW POSITION, CALL LIGHT WITHIN REACH, SIDE RAILS X2 UP
[2018-11-15] MEDS: ALBUTEROL SULFATE/IPRATROPIU 3 ML SOL IH SCH ×3 (07:34→19:00)
[2018-11-15 07:54] LABS: BASOPHILS % (AUTO) 0.1 % (0.0-2.0); HEMATOCRIT 40.5 % (36-52); HEMOGLOBIN 13.5 g/dL (12.0-18.0); LYMPHOCYTES % (AUTO) 8.7 % (20.5-51.1); MEAN CORPUSCULAR HEMOGLOBIN 31 pg (27-31); MEAN CORPUSCULAR HGB CONC 33 g/dL (33-37); MEAN CORPUSCULAR VOLUME 92.7 fL (80-94); MONOCYTES # (AUTO) 0.7 K/uL (0.8-1.0); MONOCYTES % (AUTO) 5.9 % (1.7-9.3); NEUTROPHILS # (AUTO) 9.5 K/uL (1.8-7.7); NEUTROPHILS % (AUTO) 85.3 % (42.2-75.2); PLATELET COUNT (AUTO) 185 K/uL (140-450); RED BLOOD CELL COUNT(AUTO) 4.37 MIL/uL (4.20-6.10); RED CELL DISTRIBUTION WIDTH 13.2 % (11.6-13.7); WHITE BLOOD COUNT (AUTO) 11.1 K/uL (4.8-10.8)
[2018-11-15 07:55] LABS: ANION GAP 13.4 (8-16); CARBON DIOXIDE 25.9 mmol/L (21-32); CHLORIDE 106 mmol/L (98-107); CREATININE 1.1 mg/dL (0.7-1.3); GLUCOSE 127 mg/dL (74-106); POTASSIUM 4.3 mmol/L (3.5-5.1); SODIUM SERUM 141 mmol/L (136-145); UREA NITROGEN, BLOOD 20 mg/dL (7-18)
[2018-11-15 08:00] VITALS: BP 118/71
[2018-11-15 08:14] LABS: CHOL/HDL RATIO 3.1 (1-4.5)
[2018-11-15] MEDS: APIXABAN 2.5 MG TAB PO SCH ×2 (08:31→20:33)
[2018-11-15] MEDS: LORATADINE 10 MG TAB PO SCH (08:34)
[2018-11-15] MEDS: CARVEDILOL 3.125 MG TAB PO SCH ×2 (08:38→20:24)
[2018-11-15] MEDS: FAMOTIDINE 20 MG TAB PO SCH (08:39)
[2018-11-15] MEDS: (Cyclosporine (Restasis) 1 DROP) OP SCH ×2 (09:00→20:24)
[2018-11-15] MEDS ORDERED: CLOPIDOGREL 75 MG TAB PO SCH (09:00)
[2018-11-15] MEDS ORDERED: methylPREDNISolone SS 40 MG/ML VIAL IVP SCH (09:00)
--- NOTE | 2018-11-15 09:30 | NUR ---
ADMINISTERED SCHEDULED MEDS. PATIENT TOLERATED WELL
--- NOTE | 2018-11-15 11:02 | NUR ---
PATIENT WATCHING TV, ON 2 L O2 NC, NO DISTRESS NOTED
[2018-11-15 12:00] VITALS: BP 126/72
[2018-11-15] MEDS ORDERED: PITAVASTATIN CALCIUM 4 MG PO SCH (12:00)
--- NOTE | 2018-11-15 12:15 | NUR ---
ADMINISTERED SCHEDULED MEDS. PATIENT TOLERATED WELL. EYE DROPS GIVEN NOW SINCE IT WAS JUST DROPPED OFF BY PHARMACY, WAS NOT ADMINISTERED LAST NIGHT ON 11/14/18 BECAUSE UNAVAILABLE
[2018-11-15] MEDS ORDERED: DUTASTERIDE 0.5 MG PO SCH (12:30)
--- NOTE | 2018-11-15 13:51 | NUR ---
ADMINISTERED SCHEDULED MEDS. PATIENT TOLERATED WELL. DAUGHTER AT BEDSIDE, PATIENT ON 2 L O2 NC, NO DISTRESS NOTED
[2018-11-15] MEDS: NACL 0.9% 1,000 ML IV SCH (14:02)
--- NOTE | 2018-11-15 15:30 | NUR ---
PATIENT WATCHING TV WITH FAMILY AT BEDSIDE, NO COMPLAINTS AT THIS TIME
[2018-11-15 16:00] VITALS: BP 135/79
--- NOTE | 2018-11-15 18:00 | NUR ---
PATIENT EATING DINNER, ON 2 L O2 NC, NO DISTRESS NOTED
--- NOTE | 2018-11-15 19:10 | NUR ---
BEDSIDE REPORT GIVEN TO CARIDAD FERNANDEZ. PATIENT ENDORSED IN STABLE CONDITION
--- NOTE | 2018-11-15 19:30 | NUR ---
RECEIVED BEDSIDE REPORT FROM DAY SHIFT RN, PATIENT IN BED ON RA, NO SIGNS OF ACUTE DISTRESS, BP 143/83, SR ON TELE, LEFT AC 20 G INFUSING NS AT 40 ML/HR. FAMILY AT BEDSIDE, QUESTIONS ANSWERED, EXPLAINED PLAN OF CARE.
[2018-11-15 20:00] VITALS: BP 143/83
--- NOTE | 2018-11-15 20:24 | NUR ---
DUE MEDICATIONS GIVEN
--- NOTE | 2018-11-15 22:30 | NUR ---
SLEEPING IN BED NO SIGNS OF DISTRESS
[2018-11-16] VITALS: BP 130/75
[2018-11-16] MEDS: PIPER/TAZO 3.375GM/D5W PREMIX 50 ML IV SCH ×4 (00:18→12:45)
[2018-11-16] MEDS ORDERED: PIPERACILLIN/TAZOBACTAM 3.375 GM VIAL IV ONE ×2 (00:22→05:07)
--- NOTE | 2018-11-16 02:30 | NUR ---
SLEEPING IN BED, NO SIGNS OF DISTRESS.
[2018-11-16 04:00] VITALS: BP 143/86
--- NOTE | 2018-11-16 04:10 | NUR ---
V/S TAKEN BP 143/86 HR 89 DENIES PAIN 92% ON RA
[2018-11-16] MEDS: methylPREDNISolone SS 40 MG/ML VIAL IVP SCH ×2 (05:05→13:00)
[2018-11-16] MEDS: BLOOD GLUCOSE MONITORING 1 DEV DEV FS SCH ×2 (05:10→12:17)
[2018-11-16] MEDS: ALBUTEROL SULFATE/IPRATROPIU 3 ML SOL IH SCH ×2 (06:57→13:26)
[2018-11-16 07:15] LABS: HEMATOCRIT 42.4 % (36-52); LYMPHOCYTES # (AUTO) 1.1 K/uL (2.0-11.5); LYMPHOCYTES % (AUTO) 6.3 % (20.5-51.1); MEAN CORPUSCULAR HEMOGLOBIN 31 pg (27-31); MEAN CORPUSCULAR HGB CONC 33 g/dL (33-37); MEAN CORPUSCULAR VOLUME 93.1 fL (80-94); MONOCYTES % (AUTO) 5.9 % (1.7-9.3); NEUTROPHILS # (AUTO) 15.2 K/uL (1.8-7.7); NEUTROPHILS % (AUTO) 87.8 % (42.2-75.2); PLATELET COUNT (AUTO) 225 K/uL (140-450); RED BLOOD CELL COUNT(AUTO) 4.55 MIL/uL (4.20-6.10); RED CELL DISTRIBUTION WIDTH 13.6 % (11.6-13.7); WHITE BLOOD COUNT (AUTO) 17.3 K/uL (4.8-10.8)
--- NOTE | 2018-11-16 07:17 | NUR ---
RECEIVED BEDSIDE REPORT FROM WATCH CRYSTAL CUTTER RN. PATIENT AAOX4 AND ON ROOM AIR, NO DISTRESS NOTED. SKIN INTACT. PATIENT AMBULATORY AND CONTINENT. L AC 20 G INFUSING NS AT 40, IV ASYMPTOMATIC PATENT AND INTACT. PATIENT ON TELE MONITOR AND STANDARD PRECAUTIONS IN PLACE. BED IN LOW POSITION, CALL LIGHT WITHIN REACH, SIDE RAILS X2 UP. WILL ROUND FREQUENTLY ON PT.
--- NOTE | 2018-11-16 07:28 | NUR ---
ENDORSED PATIENT TO DAY SHIFT NURSE, PATIENT STABLE.
[2018-11-16 07:42] LABS: ANION GAP 14.2 (8-16); CARBON DIOXIDE 26.4 mmol/L (21-32); CHLORIDE 104 mmol/L (98-107); GLUCOSE 147 mg/dL (74-106); POTASSIUM 3.6 mmol/L (3.5-5.1); SODIUM SERUM 141 mmol/L (136-145); UREA NITROGEN, BLOOD 27 mg/dL (7-18)
[2018-11-16 08:00] VITALS: BP 141/87
[2018-11-16] MEDS ORDERED: metFORMIN 500 MG TAB PO SCH (08:00)
--- NOTE | 2018-11-16 08:42 | NUR ---
PATIENT HAS BEEN SCREENED AND CATEGORIZED MODERATE NUTRITION RISK. PATIENT WILL BE SEEN WITHIN 3-5 DAYS OF ADMISSION. 11/17/18SAE[address]
[2018-11-16] MEDS: (Cyclosporine (Restasis) 1 DROP) OP SCH (08:47)
[2018-11-16] MEDS: LORATADINE 10 MG TAB PO SCH (08:47)
[2018-11-16] MEDS: CARVEDILOL 3.125 MG TAB PO SCH (08:48)
[2018-11-16] MEDS: FAMOTIDINE 20 MG TAB PO SCH (08:48)
--- NOTE | 2018-11-16 08:48 | NUR ---
ADMINISTERED PT MORNING SCHEDULED MEDS. PT TOLERATED THEM WELL. PT REPORTS NO PAIN OR SOB AT THIS TIME. BED IN LOW POSITION, CALL LIGHT WITHIN REACH, ALL NEEDS CURRENTLY MET. WILL CONTINUE TO ROUND FREQUENTLY ON PT.
[2018-11-16] MEDS: APIXABAN 2.5 MG TAB PO SCH (08:50)
[2018-11-16] MEDS ORDERED: PITAVASTATIN CALCIUM 4 MG PO SCH (09:00)
[2018-11-16] MEDS ORDERED: DUTASTERIDE 0.5 MG PO SCH (09:00)
[2018-11-16] MEDS ORDERED: APIX2.5 PO (10:16)
[2018-11-16] MEDS ORDERED: AZIT250T3 PO (10:18)
--- NOTE | 2018-11-16 11:12 | NUR ---
PT RESTING IN BED WATCHING TV. ALL NEEDS CURRENTLY MET. PT DENIES PAIN OR SOB. WILL CONTINUE TO MONITOR PT CLOSELY.
[2018-11-16 12:00] VITALS: BP 149/83
--- NOTE | 2018-11-16 14:30 | NUR ---
PT DISCHARGED HOME FOR SELF CARE. PT DISCHARGE TEACHING WAS DONE. PT VERBALIZED UNDERSTANDING. PT SIGNED ALL DISCHARGE PAPERWORK. DISCHARGE PAPERWORK WAS TAKEN WITH HIM. ALL PERSONAL BELONGINGS WERE PACKED UP AND TAKEN. IV REMOVED WITH TIP INTACT. WRIST BANDS REMOVED AND PLACED IN SHRED BIN. PT HOME MEDS WERE PICKED UP FROM PHARMACY AND GIVEN TO PT ON D/C. HOME MEDS ON UNIT WERE ALSO DISPENSED BACK TO PT. PT LEFT IN STABLE CONDITION ACCOMPANIED BY HIS SON.
--- NOTE | 2018-11-16 16:54 | NUR ---
PT DAUGHTER CALLED TO ASK WHAT PHARMACY PT'S MEDS WERE SENT TO BY MD UPON DC. PER MD, MEDS WERE SENT TO [facility] ON FILE. PT DAUGHTER EFT ME HER PHONE NUMBER BUT HER LINE CONTINUES TO RING BUSY. WILL CONTINUE TO TRY CALLING. DAUGHTER IS AMINA: .
[2018-11-17] MEDS ORDERED: methylPREDNISolone SS 40 MG/ML VIAL IVP SCH ×2 (09:00)
== END 2018-11-16 14:30 | disposition home or self-care (01) | DRG 291 ==
LOC: MED 12:13 → MMU 14:02
PROVIDERS: ADMIT General Practice; ATTEND General Practice
DX: I11.0 Hypertensive heart disease with heart failure (principal); J96.01 Acute respiratory failure with hypoxia; J44.1 Chronic obstructive pulmonary disease with (acute) exacerbation; E87.2 Acidosis; R65.10 Systemic inflammatory response syndrome (SIRS) of non-infectious origin without acute organ dysfunction; I50.43 Acute on chronic combined systolic (congestive) and diastolic (congestive) heart failure; E11.9 Type 2 diabetes mellitus without complications; H40.9 Unspecified glaucoma; I48.0 Paroxysmal atrial fibrillation; I49.1 Atrial premature depolarization; I25.2 Old myocardial infarction; Z87.891 Personal history of nicotine dependence; Z95.5 Presence of coronary angioplasty implant and graft; I25.10 Atherosclerotic heart disease of native coronary artery without angina pectoris; Z88.8 Allergy status to other drugs, medicaments and biological substances; Z99.81 Dependence on supplemental oxygen; Z95.1 Presence of aortocoronary bypass graft
CPT/HCPCS: 36415; 36600; 71045; 80048; 80053; 81001; 82803; 82948; 83036; 83605; 83690; 83735; 83880; 84100; 84443; 84484; 85025; 85610; 87040; 87081; 87086; 87804; 93005; 94640; 96361; 96374; 97161-GP; 99291; J1815; J2543; J2920; J2930; J7030; J7060; J7620; Q0092

== ENCOUNTER 2021-12-28 16:51 | Emergency (ER) | payer OTHER ==
[~2021-12-28] VITALS: Ht 167.6 cm; Wt 70.3 kg
[~2021-12-28 16:51] MED LIST changes: -AMOX-1000 PO; +APIX2.5 PO; -ASPI-1718 PO; +AZIT250T3 PO; -CLOP75TA55 PO; +CYCL0.052 OP; +DUTA0.5S2 PO; -FISH100053 PO; -LACT1.4C PO; -LOSA25TA43 PO; +PITA4TAB PO; -TAMS0.4C97 PO
--- NOTE | 2021-12-28 17:00 | NUR ---
PT AMBULATED TO BED 11.
[2021-12-28 17:04] VITALS: BP 141/70
--- NOTE | 2021-12-28 17:05 | NUR ---
81YO MALE C/O SOB X4DAYS. PT STATES INCREASED SOB THIS MORNING AND HAD NO RELIEF AFTER USING NEBULIZER. PT ON 2L AT HOME. PT PRESENTS WITH MOIST PRODUCTIVE COUGH. RESPIRATIONS EVEN AND UNLABORED. PT DENIES CHEST PAIN OR N/V/D. PT O2 AT 92% ON 2L VIA NC. HX: COPD, HTN, H CHOLESTEROL ALLERGIES: BUDESONIDE
--- NOTE | 2021-12-28 17:11 | NUR ---
XRAY AT BEDSIDE
[2021-12-28 17:35] LABS: BASOPHILS # (AUTO) 0.1 K/uL (0.00-0.22); EOSINOPHILS # (AUTO) 0.3 K/uL (0-0.4); EOSINOPHILS % (AUTO) 3.2 % (0.0-4.0); HEMATOCRIT 41.9 % (36-52); HEMOGLOBIN 14.1 g/dL (12.0-18.0); LYMPHOCYTES # (AUTO) 1.7 K/uL (2.0-11.5); LYMPHOCYTES % (AUTO) 18.1 % (20.5-51.1); MEAN CORPUSCULAR HEMOGLOBIN 31 pg (27-31); MEAN CORPUSCULAR HGB CONC 34 g/dL (33-37); MEAN CORPUSCULAR VOLUME 91.4 fL (80-94); MONOCYTES # (AUTO) 1.1 K/uL (0.8-1.0); NEUTROPHILS # (AUTO) 6.3 K/uL (1.8-7.7); NEUTROPHILS % (AUTO) 65.7 % (42.2-75.2); PLATELET COUNT (AUTO) 248 K/uL (140-450); RED BLOOD CELL COUNT(AUTO) 4.58 MIL/uL (4.20-6.10); RED CELL DISTRIBUTION WIDTH 13.4 % (11.6-13.7); WHITE BLOOD COUNT (AUTO) 9.6 K/uL (4.8-10.8)
[2021-12-28] MEDS ORDERED: ALBUTEROL SULFATE/IPRATROPIU 3 ML SOL IH ONE (17:55)
[2021-12-28] MEDS ORDERED: methylPREDNISolone SS 125 MG/2 ML VIAL IVP ONE (17:55)
[2021-12-28 17:57] LABS: ALBUMIN 3.7 g/dL (3.4-5.0); ANION GAP 5.8 (8-16); ASPARTATE AMINOTRANSFERASE 18 U/L (15-37); CARBON DIOXIDE 33.8 mmol/L (21-32); CHLORIDE 99 mmol/L (98-107); GLUCOSE 142 mg/dL (74-106); POTASSIUM 3.6 mmol/L (3.5-5.1); SODIUM SERUM 135 mmol/L (136-145); TOTAL BILIRUBIN 0.3 mg/dL (0.0-1.0); UREA NITROGEN, BLOOD 11 mg/dL (7-18)
--- NOTE | 2021-12-28 18:13 | NUR ---
PT SWABBED FOR COVID , WALKED AND HANDED TO LAB
--- NOTE | 2021-12-28 18:15 | NUR ---
DAUGHTER AT BEDSIDE
[2021-12-28 18:22] LABS: APPEARANCE,URINE CLEAR (CLEAR); BILIRUBIN,URINE NEGATIVE (NEGATIVE); BLOOD, URINE 2+ (NEGATIVE); LEUKOCYTE ESTERASE ,URINE NEGATIVE (NEGATIVE); NITRITE, URINE NEGATIVE (NEGATIVE); PH,URINE 6.5 (5.0-9.0); UGLUCOSE NEGATIVE (NEGATIVE)
[2021-12-28 18:45] LABS: COLOR,URINE STRAW (YELLOW)
[2021-12-28 18:46] LABS: RBC,URINE 11-20 (MOD) /HPF (0-5); WBC,URINE NONE SEEN /HPF (0-5)
--- NOTE | 2021-12-28 19:24 | NUR ---
REPORT GIVEN TO FIDE MCLEAN. ALL QUESTIONS ANSWERED. TRANSFER OF CARE AT THIS TIME
--- NOTE | 2021-12-28 19:30 | NUR ---
pt is awake and alert, expresses some relief. all needs met at this time. bed locked in lowest position.side rails x2 for safety.
--- NOTE | 2021-12-28 19:41 | NUR ---
ermd flammia at bedside.
[2021-12-28] MEDS ORDERED: AZITHROMYCIN 500 MG in DEXTROSE 5% 250 ML IV ONE (19:50)
[2021-12-28] MEDS ORDERED: AZITHROMYCIN 500 MG INJ VIAL IV ONE (19:59)
--- NOTE | 2021-12-28 22:21 | NUR ---
REPORT GIVEN TO CARIDAD BUSTAMANTE AT [facility].
--- NOTE | 2021-12-28 22:44 | NUR ---
[facility] AT BEDSIDE FOR TRANSPORT
[2021-12-28 22:55] VITALS: BP 131/71
--- NOTE | 2021-12-28 22:55 | NUR ---
Patient to be transferred to [facility]. Is being transferred due to INSURANCE. Receiving facility has accepting physician and available space. ER physician has signed transfer form. Patient or responsible constitution party has agreed to transfer and signed form. Patient belongings inventoried and will be sent with patient. Copy of nursing notes, lab reports, EKG, Physicians Orders and X-rays to be sent with patient. Report called to CARIDAD BUSTAMANTE at receiving facility. [facility] ambulance service has been called for transfer. ETA is 20MIN.
== END 2021-12-28 22:55 | disposition short-term general hospital (02) ==
LOC: MED 16:51
DX: J44.1 Chronic obstructive pulmonary disease with (acute) exacerbation (principal); Z20.822 Contact with and (suspected) exposure to COVID-19; I48.91 Unspecified atrial fibrillation; E11.9 Type 2 diabetes mellitus without complications; I10 Essential (primary) hypertension; Z79.2 Long term (current) use of antibiotics; Z79.01 Long term (current) use of anticoagulants; Z79.899 Other long term (current) drug therapy; Z88.8 Allergy status to other drugs, medicaments and biological substances
CPT/HCPCS: 36415; 71045; 80053; 81001; 83605; 83880; 84484; 85025; 87040; 87426; 93005; 94640; 96365; 96375; 99291; J0456; J2930; Q0092

== ENCOUNTER 2022-01-26 12:25 | Emergency (ER) | payer OTHER ==
[~2022-01-26] VITALS: Ht 167.6 cm; Wt 77.1 kg
[2022-01-26 12:30] VITALS: BP 154/88
--- NOTE | 2022-01-26 12:50 | NUR ---
Patient ambulated with steady gait to bed 2.
[2022-01-26] MEDS ORDERED: BENZ200C4 PO (15:50)
[2022-01-26] MEDS ORDERED: NIRM1TAB PO (15:50)
[2022-01-26 16:03] VITALS: BP 141/79
--- NOTE | 2022-01-26 16:04 | NUR ---
Patient discharged with v/s stable. Written and verbal after care instructions given and explained. Patient verbalized understanding. Ambulatory with steady gait. All questions addressed prior to discharge. Advised to follow up with PMD.
== END 2022-01-26 18:21 | disposition home or self-care (01) ==
LOC: MED 12:25
DX: U07.1 COVID-19 (principal); J44.9 Chronic obstructive pulmonary disease, unspecified; I48.91 Unspecified atrial fibrillation; E11.9 Type 2 diabetes mellitus without complications; I10 Essential (primary) hypertension; Z79.899 Other long term (current) drug therapy; Z79.2 Long term (current) use of antibiotics; Z79.01 Long term (current) use of anticoagulants; Z88.8 Allergy status to other drugs, medicaments and biological substances
CPT/HCPCS: 71045; 99283; 99284

== ENCOUNTER 2022-09-24 11:37 | Emergency (ER) | payer OTHER ==
[~2022-09-24] VITALS: Ht 172.7 cm; Wt 72.6 kg
[~2022-09-24 11:37] MED LIST changes: +BENZ200C4 PO; +NIRM1TAB PO
[2022-09-24 11:46] VITALS: BP 170/102
--- NOTE | 2022-09-24 11:54 | NUR ---
ASSUMED PATIENT CARE, NURSING ASSESSMENT COMPLETED.
[2022-09-24] MEDS ORDERED: ALBUTEROL HFA MDI 90 MCG/ACTUATION 8 GM INH ONE (12:50)
[2022-09-24] MEDS ORDERED: methylPREDNISolone SS 125 MG/2 ML VIAL IVP ONE (12:50)
[2022-09-24] MEDS ORDERED: ALBU0.0912 IH (12:52)
[2022-09-24] MEDS ORDERED: PRED20TA5 PO (12:52)
[2022-09-24] MEDS ORDERED: INHA1SPA6 MC (12:52)
[2022-09-24 13:15] LABS: BASOPHILS % (AUTO) 0.4 % (0.0-2.0); EOSINOPHILS % (AUTO) 0.3 % (0.0-4.0); HEMATOCRIT 41.2 % (36-52); HEMOGLOBIN 13.7 g/dL (12.0-18.0); LYMPHOCYTES # (AUTO) 1.7 K/uL (2.0-11.5); LYMPHOCYTES % (AUTO) 16.5 % (20.5-51.1); MEAN CORPUSCULAR HEMOGLOBIN 30 pg (27-31); MEAN CORPUSCULAR HGB CONC 33 g/dL (33-37); MEAN CORPUSCULAR VOLUME 90.5 fL (80-94); NEUTROPHILS # (AUTO) 7.8 K/uL (1.8-7.7); NEUTROPHILS % (AUTO) 73.8 % (42.2-75.2); PLATELET COUNT (AUTO) 293 K/uL (140-450); RED BLOOD CELL COUNT(AUTO) 4.55 MIL/uL (4.20-6.10); RED CELL DISTRIBUTION WIDTH 13.1 % (11.6-13.7); WHITE BLOOD COUNT (AUTO) 10.6 K/uL (4.8-10.8)
[2022-09-24 13:29] LABS: ALBUMIN 4.1 g/dL (3.4-5.0); ANION GAP 8.8 (8-16); ASPARTATE AMINOTRANSFERASE 24 U/L (15-37); CARBON DIOXIDE 33.6 mmol/L (21-32); CHLORIDE 91 mmol/L (98-107); CREATININE 0.8 mg/dL (0.6-1.3); GLUCOSE 134 mg/dL (74-106); POTASSIUM 4.4 mmol/L (3.5-5.1); SODIUM SERUM 129 mmol/L (136-145); UREA NITROGEN, BLOOD 16 mg/dL (7-18)
[2022-09-24 13:33] LABS: APPEARANCE,URINE CLEAR (CLEAR); BILIRUBIN,URINE NEGATIVE (NEGATIVE); BLOOD, URINE 1+ (NEGATIVE); COLOR,URINE YELLOW (YELLOW); LEUKOCYTE ESTERASE ,URINE NEGATIVE (NEGATIVE); NITRITE, URINE NEGATIVE (NEGATIVE); PH,URINE 6.5 (5.0-9.0); UGLUCOSE NEGATIVE (NEGATIVE)
[2022-09-24 13:57] LABS: WBC,URINE 0-5 /HPF (0-5)
[2022-09-24 14:00] LABS: PROTHROMBIN TIME 10.1 secs (10.8-13.4)
[2022-09-24] MEDS ORDERED: LEVOFLOXACIN 500 MG/D5W PREMIX 100 ML IV ONE (14:15)
[2022-09-24] MEDS ORDERED: DUTA0.5S2 PO (14:48)
[2022-09-24] MEDS ORDERED: CLOP75TA55 PO (14:48)
[2022-09-24] MEDS ORDERED: CARV3.12 PO (14:48)
[2022-09-24] MEDS ORDERED: ASPI-1822 PO (14:48)
--- NOTE | 2022-09-24 16:24 | NUR ---
SPOKE TO AMINA, DAUGHTER, INFORMED OF PT CONDITION, [facility]
--- NOTE | 2022-09-24 17:58 | NUR ---
Patient to be transferred to [facility]. Is being transferred due to INSURANCE. Receiving facility has accepting physician and available space. ER physician has signed transfer form. Patient or responsible constitution party has agreed to transfer and signed form. Patient belongings inventoried and will be sent with patient. Copy of nursing notes, lab reports, EKG, Physicians Orders and X-rays to be sent with patient. Report called to GUERA at receiving facility. [facility] ambulance service has been called for transfer. ETA is 1800.
[2022-09-24 18:00] VITALS: BP 145/78
== END 2022-09-24 17:58 | disposition short-term general hospital (02) ==
LOC: MED 11:37
DX: J44.1 Chronic obstructive pulmonary disease with (acute) exacerbation (principal); R09.02 Hypoxemia; E87.1 Hypo-osmolality and hyponatremia; I25.10 Atherosclerotic heart disease of native coronary artery without angina pectoris; E11.9 Type 2 diabetes mellitus without complications; I10 Essential (primary) hypertension; E78.5 Hyperlipidemia, unspecified; B34.9 Viral infection, unspecified; I48.91 Unspecified atrial fibrillation; Z20.822 Contact with and (suspected) exposure to COVID-19; Z95.5 Presence of coronary angioplasty implant and graft; Z98.890 Other specified postprocedural states; Z79.899 Other long term (current) drug therapy; Z79.01 Long term (current) use of anticoagulants; Z79.2 Long term (current) use of antibiotics; Z88.8 Allergy status to other drugs, medicaments and biological substances
CPT/HCPCS: 36415; 36600; 71045; 80053; 81001; 82803; 83605; 83880; 84484; 85025; 85610; 85730; 87040; 87086; 87426; 87804; 93005; 94640; 96365; 96375; 99285; J1956; J2930; Q0092